=== PATIENT | male | born 1995 | race Caucasian/White ===

== ENCOUNTER 2017-06-20 03:48 | Emergency (ER) | payer BC ==
[~2017-06-20] VITALS: Ht 190.5 cm; Wt 108.9 kg
[2017-06-20 04:00] VITALS: BP_SYST 155
--- NOTE | 2017-06-20 04:05 | NUR ---
Patient to ER bed 6 for evaluation.
--- NOTE | 2017-06-20 04:10 | NUR ---
Pt awake and alert. Pt C/O left sided sinus pain. Pt states throbbing pain 10/10. No signs of SOB or acute distress noted. Pt denies any N/V/D. Will continue to monitor.
--- NOTE | 2017-06-20 04:15 | NUR ---
ER MD KAUR AT BEDSIDE EXAMINING PATIENT.
[2017-06-20] MEDS ORDERED: AMOXICILLIN/CLAVULANATE POTASSIUM 875 MG TABLET PO ONE (04:30)
[2017-06-20 04:45] VITALS: BP_SYST 155
--- NOTE | 2017-06-20 04:45 | NUR ---
Patient given written and verbal discharge instructions and verbalizes understanding. ER MD Fischer discussed with patient the results and treatment provided. Patient in stable condition. ID arm band removed. Rx of Ibprophen and Augmentin given. Patient educated on pain management and to follow up with PMD. Pain Scale 3/10. Opportunity for questions provided and answered. Medication side effect fact sheet provided.
== END 2017-06-20 04:45 | disposition home or self-care (01) ==
LOC: SED 03:48
DX: J01.90 Acute sinusitis, unspecified (principal)
CPT/HCPCS: 99283

== ENCOUNTER 2021-07-28 12:45 | Emergency (ER) | payer BC, MEDICAID ==
[~2021-07-28] VITALS: Ht 190.5 cm; Wt 129.3 kg
[2021-07-28 12:45] VITALS: BP_SYST 134
[2021-07-28] MEDS ORDERED: LIDOCAINE 1% 10 MG/ML, 20 ML MDV INJ ONE (13:00)
[2021-07-28] MEDS ORDERED: BACITRACIN 1 GM OINT TP ONE (13:00)
[2021-07-28 13:44] VITALS: BP_SYST 134
== END 2021-07-28 13:46 | disposition home or self-care (01) ==
LOC: SED 12:45
DX: S61.216A Laceration without foreign body of right little finger without damage to nail, initial encounter (principal); S51.011A Laceration without foreign body of right elbow, initial encounter; W18.02XA Striking against glass with subsequent fall, initial encounter; Y93.89 Activity, other specified; Y92.89 Other specified places as the place of occurrence of the external cause; Y99.8 Other external cause status
CPT/HCPCS: 12002; 99283; J2001; 99282